=== PATIENT | male | born 1995 | race Caucasian/White ===

== ENCOUNTER 2018-07-21 15:08 | Emergency (ER) | payer OTHER ==
[2018-07-21] MEDS ORDERED: Albuterol/Ipratropium NEB.SOL* Albuterol 2.5 MG/Ipratropium 0.5 MG 3 ML INH ONE ×2 (15:30→16:05)
[2018-07-21] MEDS ORDERED: predniSONE TAB* 20 MG PO ONE (15:30)
--- NOTE | 2018-07-21 15:42 | UC ---
Respiratory Complaint HPI - HPI Summary HPI Summary: 23-year-old male presents with one-month history of intermittent shortness of breath, wheezing, chest tightness, and occasional productive cough for clear sputum. States tends to be worse at night. Disrupts his sleep. Associated with some mild nasal congestion. Reports history of asthma. He has an unknown maintenance inhaler that he uses twice a day and albuterol inhaler PRN but states he has been out of these for over a month. Denies fever, chills, chest pain, abdominal pain, nausea, or vomiting. - History of Current Complaint Chief Complaint: UCRespiratory Stated Complaint: COUGH, ASTHMA Time Seen by Provider: 07/21/18 15:23 Hx Obtained From: Patient Onset/Duration: Gradual Onset, Lasting Weeks Severity Currently: Mild Pain Intensity: 0 Aggravating Factors: Recumbent Position Alleviating Factors: Nothing Associated Signs And Symptoms: Positive: Dyspnea, Wheezing, Nasal Congestion. Negative: Fever, Chills, Pleuritic Chest Pain, Hemoptysis, URI, Hoarseness, Sinus Discomfort - Allergies/Home Medications Allergies/Adverse Reactions: Allergies Allergy/AdvReac Type Severity Reaction Status Date / Time No Known Allergies Allergy Verified 07/21/18 15:28 PMH/Surg Hx/FS Hx/Imm Hx Previously Healthy: Yes Respiratory History: Asthma - Surgical History Surgical History: Yes Surgery Procedure, Year, and Place: ear tubes - Family History Family History: Noncontributory - Social History Occupation: Employed Full-time Lives: With Family Alcohol Use: Occasionally Substance Use Type: Marijuana Substance Use Comment - Amount & Last Used: socially Smoking Status (MU): Light Every Day Tobacco Smoker Type: Cigarettes Amount Used/How Often: 1/3 PPD Length of Time of Smoking/Using Tobacco: 2 Years Have You Smoked in the Last Year: No - Immunization History Vaccination Up to Date: Yes Review of Systems Constitutional: Negative Skin: Negative ENT: Nasal Discharge Respiratory: Shortness Of Breath, Cough, Other - wheezing Cardiovascular: Negative Gastrointestinal: Negative Is Patient Immunocompromised?: No All Other Systems Reviewed And Are Negative: Yes Physical Exam Triage Information Reviewed: Yes Appearance: Well-Appearing, No Pain Distress, Well-Nourished Vital Signs: Initial Vital Signs Temp 98.8 F 07/21/18 15:24 Pulse 66 07/21/18 15:24 Resp 17 07/21/18 15:24 BP 123/65 07/21/18 15:24 Pulse Ox 97 07/21/18 15:24 Vital Signs Reviewed: Yes Eyes: Positive: Conjunctiva Clear. Negative: Discharge ENT: Positive: Normal ENT inspection Neck: Positive: Supple, Nontender, No Lymphadenopathy Respiratory: Positive: No respiratory distress, Decreased breath sounds, Wheezing - Diffuse bilateral wheezing Cardiovascular: Positive: RRR, No Murmur Neurological: Positive: Alert Skin Exam: Normal UC Diagnostic Evaluation - Laboratory O2 Sat by Pulse Oximetry: 97 Re-Evaluation - Re-Evaluation First Eval Re-Evaluation Time: 16:05 Change: Improved Comment: Post DuoNeb treatment patient states feels like he is breathing a little easier but still wheezing. Continues to have bilateral diffuse wheezing with improved air exchange. Second Eval Re-Evaluation Time: 16:37 Change: Improved Comment: Patient reports breathing much better. No wheezing or SOB. Good bilateral air exchange. Mild intermittent wheeze at end of expiration bilateral bases. Respiratory Course/Dx - Course Course Of Treatment: 23-year-old male presents with 1 month history of intermittent shortness of breath, wheezing, and occasionally productive cough for clear sputum. History of asthma and has been out of his inhalers for approximately one month. Afebrile. Exam revealed mild to moderate bilateral diffuse wheezing without respiratory distress. Patient was given prednisone 40 mg by mouth and received 2 DuoNeb treatments with good improvement in his symptoms. He is being discharged on prednisone 40 mg daily for 4 days starting tomorrow, a Flovent HFA inhaler 2 puffs twice daily, and albuterol inhaler 2 puffs every 4-6 hours as needed. He is to schedule appointment with his primary care provider within 5 days for recheck. Warning symptoms were reviewed with the patient. Verbalizes understanding and agrees with plan of care. - Differential Dx/Diagnosis Differential Diagnosis/HQI/PQRI: Asthma, Bronchitis, Lower Resp Infection Provider Diagnoses: Persistent mild asthma with exacerbation Discharge - Sign-Out/Discharge Documenting (check all that apply): Patient Departure All imaging exams completed and their final reports reviewed: No Studies - Discharge Plan Condition: Stable Disposition: HOME Prescriptions: Albuterol HFA INHALER* [Ventolin HFA Inhaler*] 2 puff INH Q4H PRN #1 mdi PRN Reason: Sob/Wheezing Fluticasone HFA 110 mcg(NF) [Flovent HFA 110 mcg(NF)] 2 puff INH BID #1 mdi predniSONE [Prednisone 20 MG TAB] 40 mg PO DAILY #8 tablet Patient Education Materials: Asthma (ED) Forms: *Work Release Referrals: Darren Kelly DO [Primary Care Provider] - 5 Days Additional Instructions: Your symptoms are consistent with an exacerbation of your asthma. Start Flovent 2 puffs twice a day. It is important that you take this exactly as directed. I would recommend that you use your albuterol inhaler 15 minutes before taking this inhaler. Be sure to rinse your mouth with water after using to prevent an oral yeast infection. Use albuterol inhaler 2 puffs every 4-6 hours as needed for shortness of breath , wheezing, or coughing fits. Start prednisone 40 mg (2 tabs) once a day for 4 days starting tomorrow. We already gave you a dose here in the clinic. Follow up with your primary care provider within 5 days for recheck. Call tomorrow to make an appointment. Seek immediate medical attention in the emergency room if you develop fever greater than 100.5 F, have worsening shortness of breath, chest pain, persistent wheezing despite using your albuterol inhaler, or any worsening of symptoms. - Billing Disposition and Condition Condition: STABLE Disposition: Home
[2018-07-21 16:44] VITALS: BP 128/70
== END 2018-07-21 16:53 | disposition home or self-care (01) ==
LOC: UCCORT 15:08
DX: J45.31 Mild persistent asthma with (acute) exacerbation (principal); F17.210 Nicotine dependence, cigarettes, uncomplicated
CPT/HCPCS: 99213; A9270-GY; G0463; J7512